=== PATIENT | male | born 1940 | race Caucasian/White ===

== ENCOUNTER → 2016-11-08 | Outpatient (CLI) | payer MEDICARE | END | disposition home or self-care (01) | LOC: ROC 12:53 | PROVIDERS: ATTEND Radiology Radiation Oncology | DX: C34.11 Malignant neoplasm of upper lobe, right bronchus or lung (principal); R53.83 Other fatigue; Z79.82 Long term (current) use of aspirin; Z88.0 Allergy status to penicillin | CPT/HCPCS: G0463 ==

== ENCOUNTER → 2017-04-09 | Outpatient (CLI) | payer MEDICARE | END | disposition home or self-care (01) | LOC: ROC 13:33 | PROVIDERS: ATTEND Radiology Radiation Oncology | DX: C34.11 Malignant neoplasm of upper lobe, right bronchus or lung (principal); D09.9 Carcinoma in situ, unspecified; Z88.0 Allergy status to penicillin | CPT/HCPCS: G0463 ==